=== PATIENT | male | born 1960 ===

== ENCOUNTER 2024-05-31 13:29 | Outpatient (REF) | payer SELFPAY ==
[2024-05-31 16:54] LABS: Creatinine Urine 74.68 mg/dL; Microalbum/Creatinine Ratio Ur 41.5 ug/mg cr (<30)
[2024-05-31 18:10] LABS: Alanine Aminotransferase 20 U/L (0-40); Alkaline Phosphatase 87 U/L (39-117); Anion Gap 10 (12-20); Aspartate Amino Transferase 23 U/L (5-37); Bilirubin Direct < 0.2 mg/dL (0.0-0.5); Bilirubin Total 0.2 mg/dL (0.0-1.0); Blood Urea Nitrogen 21 mg/dL (9-16); Calcium 9.6 mg/dL (8.4-10.2); Carbon Dioxide 29 mmol/L (22-29); Chloride 106 mmol/L (96-108); Cholesterol 162 mg/dL (<200); Estimated Glomerular Filt Rate > 60; Glucose Random 183 mg/dL (60-115); HDL Cholesterol 41 mg/dL (>40); LDL Cholesterol Calculated 96 mg/dL (<100); Potassium 3.9 mmol/L (3.3-5.1); Sodium 141 mmol/L (135-145); Total Protein 7.7 g/dL (6.5-8.0); Triglycerides 128 mg/dL (<150)
== END 2024-05-31 13:30 | disposition home or self-care (01) ==
LOC: HO.HHCL 13:29
PROVIDERS: Visit Provider Family Medicine
DX: E11.9 Type 2 diabetes mellitus without complications (principal)
CPT/HCPCS: 36415; 80048; 80061; 80076; 82043; 82570